=== PATIENT | male | born 1985 | race Caucasian/White ===

== ENCOUNTER 2024-02-22 17:02 | Inpatient (IN) | payer OTHER ==
[2024-02-22 17:55] VITALS: BMI 25.1
[2024-02-22] MEDS ORDERED: MAG HYDROX/AL HYDROX/SIMETH 30 ML UNIT-DOSE CUP PO PRN (19:14)
[2024-02-22] MEDS ORDERED: BENZONATATE 200 MG CAPSULE PO PRN (19:14)
[2024-02-22] MEDS ORDERED: NALOXONE (NARCAN) HCL 4 MG/0.1 ML SPRAY NS PRN (19:14)
[2024-02-22] MEDS ORDERED: BISMUTH SUBSALICYLATE 524 MG/30 ML PO PRN (19:14)
[2024-02-22] MEDS ORDERED: DICYCLOMINE HCL 10 MG CAPSULE PO PRN (19:14)
[2024-02-22] MEDS ORDERED: IBUPROFEN 600 MG TABLET (FP) PO PRN (19:14)
[2024-02-22] MEDS ORDERED: ONDANSETRON *ODT* 4 MG TABLET SL PRN (19:14)
[2024-02-22] MEDS ORDERED: ACETAMINOPHEN 325 MG TABLET (FP) PO PRN (19:14)
[2024-02-22] MEDS ORDERED: MAGNESIUM HYDROX 2400MG/30ML ORAL SUSPENSION 30 ML CUP PO PRN (19:14)
[2024-02-22] MEDS ORDERED: LOPERAMIDE HCL 2 MG CAPSULE PO PRN (19:14)
[2024-02-22] MEDS ORDERED: IBUPROFEN 400 MG TABLET (FP) PO PRN (19:14)
[2024-02-22] MEDS ORDERED: guaiFENesin 600 MG TABLET.ER (FP) PO PRN (19:14)
[2024-02-22] MEDS ORDERED: BENZOCAINE/MENTHOL (CHLORASEPTIC ) LOZENGE MM PRN (19:14)
[2024-02-22] MEDS ORDERED: POLYETHYLENE GLYCOL (HEALTHYLAX) 3350 17 GM PACKET PO PRN (19:14)
[2024-02-22] MEDS ORDERED: AMOX TR/POT CLAV 875MG/125MG TABLETS (FP) PO ONE (19:22)
[2024-02-22] MEDS: THIAMINE 100 MG TABLET PO SCH (21:56)
[2024-02-22] MEDS: AMOX TR/POT CLAV 875MG/125MG TABLETS (FP) PO ONE (21:56)
[2024-02-22] MEDS: BACITRACIN 0.9 GM PACKET TP SCH (21:56)
[2024-02-22] MEDS: MELATONIN 5 MG TABLETS PO SCH (21:56)
[2024-02-22] MEDS: diazePAM 5 MG TABLET PO SCH (22:33)
[2024-02-22] MEDS: BUDESONIDE/FORMETEROL FUMARATE 80/4.5 mcg INHALER IH SCH (22:56)
[2024-02-23] MEDS: diazePAM 5 MG TABLET PO PRN (03:18)
[2024-02-23] MEDS: AMOX TR/POT CLAV 875MG/125MG TABLETS (FP) PO SCH (07:11)
[2024-02-23] MEDS: PRENATAL VITAMINS W/ FOLIC ACID TABLET (FP) PO SCH (09:49)
[2024-02-23 09:56] LABS: HEMATOCRIT 39.7 % (35.4-49); HEMOGLOBIN 13.4 GM/dL (11.7-16.9); MCH 31.7 pg (25.7-33.7); MCHC 33.9 g/dl (32.0-35.9); MEAN CELL VOLUME 93.7 fl (80-96); MEAN PLT VOLUME 7.4 fl (7.5-11.1); PLATELET COUNT 244 10^3/uL (134-434); RBC 4.23 M/mm3 (4.00-5.60); RDW 13.5 % (11.9-15.9); WHITE BLOOD COUNT 6.3 K/mm3 (4.0-10.0)
[2024-02-23 10:22] LABS: CHLORIDE 107 mmol/L (98-107); POTASSIUM 4.2 mmol/L (3.5-5.1); SODIUM 138 mmol/L (136-145)
[2024-02-23 10:35] LABS: ALBUMIN 3.5 g/dl (3.4-5.0); BLOOD UREA NITROGEN 10.1 mg/dL (7-18); CALCIUM 8.7 mg/dL (8.5-10.1)
[2024-02-23 10:36] LABS: ANION GAP 5 mmol/L (4-13); CO2 27 mmol/L (21-32); GLUCOSE,RANDOM 102 mg/dL (74-106); SGPT/ALT 27 U/L (13-61)
[2024-02-23 10:37] LABS: SGOT/AST 19 U/L (15-37)
[2024-02-23 10:38] LABS: BILIRUBIN,TOTAL 0.4 mg/dL (0.2-1); TOT PROT 6.9 g/dl (6.4-8.2)
[2024-02-23 10:39] LABS: ALK PHOS 92 U/L (45-117); CREATININE 0.9 mg/dL (0.55-1.3)
[2024-02-23 14:21] LABS: HIV INTERPRETATION NEGATIVE (NEGATIVE)
[2024-02-23] MEDS: METHOCARBAMOL 500 MG TABLET PO PRN (17:04)
[2024-02-23] MEDS: hydrOXYzine PAMOATE 25 MG CAPSULE (FP) PO PRN (17:04)
[2024-02-23] MEDS: ALBUTEROL SO4 HFA INHALER IH PRN (20:08)
[2024-02-24] MEDS: diazePAM 5 MG TABLET PO SCH (05:26)
[2024-02-24] MEDS ORDERED: NICOTINE POLACRILEX 2 MG LOZENGE BC PRN (09:21)
[2024-02-24] MEDS ORDERED: NICOTINE POLACRILEX 2 MG GUM BUC PRN (09:21)
[2024-02-25] MEDS: diazePAM 5 MG TABLET PO SCH (05:54)
[2024-02-25] MEDS: diazePAM 5 MG TABLET PO ONE (22:59)
[2024-02-26] MEDS: diazePAM 5 MG TABLET PO ONE (05:54)
[2024-02-26 09:01] VITALS: BP 126/88; PULSE 87; RESP 16; TEMP 97.1
[2024-02-26] MEDS: NALOXONE (NYS OPIOID OVERDOSE PROGRAM) 4 MG/0.1 ML SPRAY NS PRN (09:54)
== END 2024-02-26 10:05 | disposition home or self-care (01) | DRG 774 ==
LOC: YASAS 17:02 → Y6N 19:46
PROVIDERS: ADMIT Allergy & Immunology; ATTEND Surgery
PROC: HZ2ZZZZ Detoxification Services for Substance Abuse Treatment (ICD-10-PCS; principal; 2024-02-22)
DX: F10.230 Alcohol dependence with withdrawal, uncomplicated (principal); F14.10 Cocaine abuse, uncomplicated; F12.20 Cannabis dependence, uncomplicated; F17.210 Nicotine dependence, cigarettes, uncomplicated; F31.9 Bipolar disorder, unspecified; F41.8 Other specified anxiety disorders; J45.20 Mild intermittent asthma, uncomplicated; Z87.820 Personal history of traumatic brain injury
CPT/HCPCS: 36415; 80053; 80305; 80307; 85027; 86780; 86803; 87389; 93005; 93010